=== PATIENT | female | born 1985 ===

== ENCOUNTER 2022-11-17 13:20 | Inpatient (IN) | payer OTHER, BC, SELFPAY ==
[2022-11-17 13:40] VITALS: BMI 29.0
[2022-11-17 14:00] VITALS: BP 136/84; PULSE 70; RESP 16; TEMP 36.6; O2SAT 99
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
[2022-11-17 22:00] VITALS: BP 113/74; PULSE 64; RESP 16; TEMP 36.4; O2SAT 97
[2022-11-18 06:00] VITALS: BP 109/73; PULSE 76; RESP 18; TEMP 36.7; O2SAT 97
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
--- NOTE | 2022-11-18 09:24 | PC.NURSE ---
PT CURRENTLY DENIES SI/HI/AH/VH. PT BECAME TEARFUL DURING ASSESSMENT STATING THAT SHE JUST WISHES SHE WAS HOME WITH HER CHILDREN AND THAT SHE BELIEVES IT WAS HER MEDICATION THAT MADE HER FEEL LIKE THAT. PT EXPRESSED WISH TO SPEAK WITH THE DOCTOR. PT WAS EDUCATED THAT THE DOCTOR WILL COME AND SPEAK WITH HER TODAY AND WILL MAKE A PLAN FOR HER. PT WAS COOPERATIVE WITH ASSESSMENT. PT CURRENT NEEDS ARE MET WILL CONTINUE TO MONITOR.
[2022-11-18] MEDS: escitalopram 10 mg Tablet PO (10:58)
[2022-11-18 14:00] VITALS: BP 108/70; PULSE 60; RESP 16; TEMP 36.7; O2SAT 98
[2022-11-18] MEDS: quetiapine XR (24HR) 50 mg Tablet 100 MG PO (20:52)
[2022-11-18 22:00] VITALS: BP 114/71; PULSE 66; RESP 18; TEMP 36.4; O2SAT 99
[2022-11-19 06:00] VITALS: BP 97/66; PULSE 57; RESP 17; TEMP 36.5; O2SAT 95
[2022-11-19] MEDS: escitalopram 10 mg Tablet 20 MG PO (08:48)
[2022-11-19 14:00] VITALS: BP 117/73; PULSE 69; RESP 16; TEMP 36.6; O2SAT 97
--- NOTE | 2022-11-19 17:42 | W.PM.NPUPNS ---
Subjective NPU Subjective: The patient is a 37-year-old white female admitted with depression with a history of bipolar 2 disorder currently on Lexapro and Seroquel XR. The patient had reported feeling better. She reported no suicidal thoughts. She had reported improved energy. She reported no feelings of hopelessness. She was able to attend groups. She had expressed desire to simplify her medications. She had continued to report her surprise at the rapid withdrawal of Vraylar had led to increased agitation and stated that she was hopeful that that was not to occur again. Mental Status Exam MSE Comments: She is a casually dressed white female with adequate hygiene and good eye contact who appeared her stated age. She was pleasant and cooperative on interview and appeared to be a good historian. Her speech was normal in regards to rate rhythm and prosody. Her mood was described as all right. Her affect was brighter. Her thought process was linear logical and goal-directed. Her thought content showed no evidence of active suicidal ideation or homicidal ideation. She had acknowledged the severity of her overdose and seriousness of the action. There was no clear evidence of delusional thinking. She did not appear to be responding to internal stimuli. She was alert and oriented to person place time and situation. Her attention span appeared fair. Her insight was improving. Her judgment was poor. Her impulse control appeared to be improving. Vitals/I&O/Wt Last Vital Signs Temp 98 F 11/19/22 14:00 Pulse 69 11/19/22 14:00 Resp 16 11/19/22 14:00 BP 117/73 11/19/22 14:00 Pulse Ox 97 11/19/22 14:00 O2 Del Method Room Air 11/19/22 14:00 A&P Assessment and plan (1) Overdose of lamotrigine: (2) Bipolar II disorder: (3) Depressive episode: Plan Patient is a 37-year-old white female with a history of likely bipolar 2 disorder admitted after a significant overdose on lamotrigine with suicidal intent reportedly associated with acute withdrawal off of Vraylar and recent argument and stress associated with her ex . 1.? Engage? patient in individual ,milieu, and group therapy 2. ?We will attempt to gather collateral information from previous providers ?3. ?TO-15 minute checks on the unit. ?4.? Restart Lexapro 20mg in am, increase Seroquel xr 150mg at night. Involuntary Hold Information 96 Hour Hold: 96 Hour Involuntary Admission: No Attestations NPU Medical Necessity Statement*: Inpatient hospitalization is medically necessary and deemed to be the clinically appropriate intervention at this time. Medications will be initiated and titrated upward as necessary. Patient will be hospitalized for at least two midnights with a likely length of stay of 4-6 days. Coding Level of Care Code Acute Code for Chg Fwd Diagnoses Overdose of lamotrigine T42.6X1A Bipolar II disorder F31.81 Depressive episode F32.A
[2022-11-19] MEDS: quetiapine XR (24HR) 50 mg Tablet 150 MG PO (20:43)
[2022-11-19 22:00] VITALS: BP 117/73; PULSE 80; RESP 18; TEMP 36.8; O2SAT 94
[2022-11-20 06:00] VITALS: BP 100/64; PULSE 58; RESP 16; TEMP 36.7; O2SAT 96
[2022-11-20] MEDS: escitalopram 10 mg Tablet 20 MG PO (09:54)
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
[2022-11-20 14:00] VITALS: BP 114/74; PULSE 69; RESP 17; TEMP 36.7; O2SAT 100
[2022-11-20 15:18] VITALS: BP 114/74; PULSE 69; RESP 17; TEMP 36.7; O2SAT 100
== END 2022-11-20 15:30 | disposition home or self-care (01) | DRG 885 ==
PROVIDERS: Admitting Provider Psychiatry & Neurology Psychiatry; Visit Provider Psychiatry & Neurology Psychiatry
DX: F31.81 Bipolar II disorder (principal); R45.851 Suicidal ideations; Z63.0 Problems in relationship with spouse or partner
CPT/HCPCS: 97150; 97165; 99238